=== PATIENT | female | born 2000 | race Caucasian/White ===

== ENCOUNTER 2025-02-22 06:10 | Day surgery (SDC) | payer BC, SELFPAY ==
[2025-02-01 13:54] VITALS: BMI 25.3
[2025-02-01 14:06] LABS: % Basophils 0.4 % (0-2); % Eosinophils 1.4 % (0-6); % Immature Granulocytes 0.4 % (0-0.5); % Lymphocytes 35.5 % (20.5-51.1); % Neutrophils 55.3 % (42.2-75.2); Absolute Eosinophils 0.1 10^3/uL (0-0.7); Absolute Monocytes 0.6 10^3/uL (0.1-0.6); Absolute Neutrophils 4.6 10^3/uL (1.4-6.5); Hematocrit 40.2 % (37.0-47.0); Hemoglobin 13.9 g/dL (12.0-16.0); Mean Corp Hgb Conc. 34.6 g/dL (33.0-37.0); Mean Corpuscular Hgb 31.7 pg (27.0-31.0); Mean Corpuscular Volume 91.8 fL (81.0-99.0); Mean Platelet Volume 10.3 fL (7.4-10.4); Nucleated Red Blood Cells % 0 %; Platelet Count 288 10^3/uL (130-400); Red Blood Cell Count 4.38 10^6/uL (4.20-5.40); Red Cell Dist. Width 11.9 % (11.5-14.5); White Blood Cell Count 8.4 10^3/uL (4.8-10.8)
[2025-02-01 14:15] LABS: HCG, Serum Qualitative Screen Negative
--- NOTE | 2025-02-21 17:23 | HPS.HSE ---
Family Physician
-
Family Physician: Ngozi Wadsworth
Chief Complaint
-
LEEP
History of Present Illness
Patient is a 25yo G0 who presents for preop appointment for LEEP. She had a Pap on 12/03 that was ASC-H with background of LSIL. 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 ECC was benign. LEEP recommended.
PMHx: denies
Meds: OCPs, probiotic
Surghx: denies
NKDA
Socialhx: occ etoh, denies tobacco or illicit drug use
Famhx: lung cancer paternal and maternal grandfathers, maternal grandfather w/ HTN
Gynhx: LMP 3/5, regular monthly periods, denies hx STDs
OBHx: G0
Medical History
Past Medical History
Past Medical History: Reports None
Past Surgical History: Reports None
Social History
Tobacco: Non-smoker
Alcohol: Occasional
Drug: None
Family History
Family History: Not pertinent
Allergies / Home Medications
Allergies reflects when Allergies were last updated in [facility].
Home Medications with original date entered in [facility]
Allergy/Medication List:
Meds: OCP daily, probiotic daily
NKDA
Review of Systems
-
A 12 point ROS was completed and negative except as noted: Yes
Physical Exam
Physical Exam
General: Well Developed and Well Nourished
HEENT: NormoCephalic
Respiratory: Non Labored Respirations
Cardiac: Regular Rhythm
GI: Soft and Non Tender
Skin: Warm and Dry
Neuro: Awake and Alert
Psych: Calm
Laboratory Results
-
02/01/25 12:47
Impression/Plan
-
IMPRESSION:
Patient is a 25yo G0 who with CIN3 presents for LEEP
PLAN:
- Risks, benefits and alternatives to LEEP discussed including bleeding, infection, damage to surrounding structures, need for future operations, and risk of labor. Postop expectations and restrictions discussed
- Preadmission testing orders completed- CBC, hcg ordered
- Surgery scheduled for 02/22
[2025-02-22] VITALS (7 sets, daily range): BP systolic 82–132; BP diastolic 48–82; BMI 25.3
[2025-02-22] MEDS: TYLENOL 1000 MG PO (08:44)
[2025-02-22] MEDS: NORMOSOL-R/PLASMALYTE-A 1000 IV (09:00)
--- NOTE | 2025-02-22 15:11 | OR.RPT ---
Operative Report
Operative Report
Date of procedure: 02/22/25
Preop diagnosis: CIN3
Postop diagnosis: same
Procedure: LEEP
Surgeon: Freida
Anesthesia: Dr. Astorga, general
EBL: 5mL
Finding: normal appearing external genitalia, cervix with decreased uptake of Lugol's at 2 o'clock, LEEP bed hemostatic at the end of the procedure
Complications: none
Specimen: LEEP, stitch at 12 o'clock
Urine output: 100mL
Indication: Patient is a 25yo G0 who presents for LEEP. She had a Pap on 12/03/24 that was ASC-H, background of LSIL. Colposcopy showed CIN3 at 2 o'clock with negative ECC. LEEP was recommended. Risks, benefits and alternatives discussed and all
questions answered prior to proceeding. Consents were signed.
Procedure: Patient was taken to the operating room and placed under general anesthesia. She was placed in the dorsal lithotomy position in Rhett type stirrups. She was prepped and draped in the normal sterile fashion. The bladder was drained with a
straight catheter yielding 100cc of clear urine. Insulated speculum was inserted into the vagina revealing good visualization of the cervix. 1% lidocaine with epinephrine was injected circumferentially into the cervix. Lugol's solution was applied
to the cervix. Decreased uptake of Lugol's noted at 2 o'clock. A large loop was introduced into the cervix at the 12 o'clock position and a pass was made to the 6 o'clock position. The biopsy was tagged at 12 o'clock. The specimens were sent to
pathology for evaluation. The cervix was cauterized with a ball electrode until good hemostasis was noted. Monsel's solution was applied to the cervix at the end of the procedure. The LEEP bed was noted to be hemostatic. All instruments were removed
from the vagina. The patient was awakened from anesthesia. The patient tolerated the procedure well. All sponge and instrument counts were correct. She was taken to PACU in stable condition.
== END 2025-02-22 12:10 | disposition home or self-care (01) ==
LOC: SDS 06:10
PROVIDERS: ATTENDING PHYSICIAN Student in an Organized Health Care Education/Training Program; FAMILY PHYSICIAN Physician Assistant Medical
DX: N87.0 Mild cervical dysplasia (principal)
CPT/HCPCS: 57522; 88307; 36415; 84703; 85025; 86850; 86900; 86901; 88341; 88342